=== PATIENT | female | born 1970 | race Caucasian/White ===

== ENCOUNTER 2017-02-28 23:00 | Emergency (ER) | payer BC ==
[~2017-02-28] VITALS: Ht 170.2 cm; Wt 97.6 kg
[~2017-02-28 23:00] MED LIST: AMOX500C5 PO; PREN-96 PO
--- OUTSIDE RECORDS SUMMARY | 2017-02-28 23:04 | XMS REPORT | Continuity of Care Document ---
Author Author [facility] Address Unknown Phone Unavailable Care Team Providers Care Dairy Quality Assurance Officer Name Role Phone DOMINIK FERNÁNDEZ MD PCP [phone] Insurance Providers Payer Name Policy Number Subscriber Name Relationship [facility] [place] [id number] Rj Lepe 01 Advance Directives Directive Response Recorded Date/Time Advanced Directives No 07/22/16 7:13pm Chief Complaint and Reason for Visit Chief Complaint Cardiac Complaint Reason for Visit Right-sided chest pain Problems Active Problems Medical Problem Onset Date Status Acute exacerbation of bronchiectasis 08/08/2012 Acute Right-sided chest pain Unknown Acute Right-sided thoracic back pain Unknown Acute Tachypnea 08/08/2012 Acute UTI (urinary tract infection) Unknown Acute Medications Current Home Medications Medication Dose Units Route Directions Days/Qty Instructions Start Date Amoxicillin 500 Mg 500 Mg ORAL Twice A Day 08/08/12 Vit 18/Iron Cb/Fa/Dss 1 Each 1 Tab ORAL Daily 08/08/12 Social History Query Response Start Date Stop Date Smoking Status Never smoker Hospital Discharge Instructions No hospital discharge instructions. Plan of Care Discharge Date 07/23/16 3:10am Disposition 01 HOME OR SELF-CARE Condition at Discharge Stable Prescriptions See Medication Section Referrals DOMINIK FERNÁNDEZ MD - Additional Instructions/Education Tylenol as needed for pain Follow up with Dr. Lewis Tuesday if discomfort persists Return if symptoms worsen Some of your test results may not be complete prior to your leaving the Emergency Department. The Emergency Department is not authorized to give test results over the phone. Please contact the doctor's office listed in this packet of information for your final results. Follow up with your primary care physician or return to the Emergency Department for worsening or worrisome symptoms. * Emergency Department phone number: [phone], x [phone]* MEDICAL RECORD If you need copies of your X-rays, call [phone]. If you need copies of your medical record, including lab results, a signed authorization for release of records will be required. A telephone call for release of Health Information is not allowed. BILLING Billing can sometimes be confusing and frustrating. To help avoid confusion in the future, please take a moment to acquaint yourself with the billing parties for services. SERVICE BILLING [employer] Emergency Room Services [facility] Physician Services [facility] X-rays [facility] Patients will receive bills for services from the appropriate provider. If you have any questions about your [facility] bill, our staff will be happy to assist you. Please call [phone], and ask for the billing department. THANK YOU for choosing [facility] as your emergency care provider! Care Plan and Goals Follow Doctor's written orders Functional Status No functional status results. Allergies, Adverse Reactions, Alerts No known allergies. Immunizations No immunization records. Vital Signs Acute Vital Signs Vital Response Date/Time Temperature (Fahrenheit) 97.9 07/23/2016 3:20am Pulse 65 bpm 07/23/2016 3:20am Respirations 20 07/23/2016 3:20am Height 5 ft 7 in Weight 212 lb Body Mass Index 33.0 kg/m^2 Results Pending Laboratory Results Test Name Collection Date/Time Procedures Procedure Status Date Provider(s) TRANSVAGINAL US NON-OB Completed 06/24/16 US EXAM PELVIC COMPLETE Completed 06/24/16 ROUTINE VENIPUNCTURE Completed 06/25/16 CHORIONIC GONADOTROPIN TEST Completed 06/25/16 ROUTINE VENIPUNCTURE Completed 06/27/16 CHORIONIC GONADOTROPIN TEST Completed 06/27/16 OB US < 14 WKS SINGLE FETUS Completed 06/30/16 TRANSVAGINAL US OBSTETRIC Completed 06/30/16 ROUTINE VENIPUNCTURE Completed 06/29/16 CHORIONIC GONADOTROPIN TEST Completed 06/29/16 OB US < 14 WKS SINGLE FETUS Completed 07/08/16 TRANSVAGINAL US OBSTETRIC Completed 07/08/16 Encounters Encounter Location Arrival/Admit Date Discharge/Depart Date Attending Provider Departed Emergency Room [facility] 07/22/16 6:49pm 07/23/16 3:10am ARMIN MILLIGAN MD Registered [facility] 07/08/16 12:57pm DASHA LEWIS MD Registered [facility] 06/30/16 3:42pm DASHA LEWIS MD Registered [facility] 06/29/16 7:53am DASHA LEWIS MD Registered Clinic [facility] 06/27/16 11:28am DASHA LEWIS MD Registered [facility] 06/25/16 11:32am DASHA LEWIS MD Registered [facility] 06/24/16 9:49am KYAW MARINELLI Recent Diagnosis
[2017-02-28] MEDS ORDERED: cloNIDine 0.1 MG (CATAPRES) TAB PO ONE (23:25)
[2017-02-28] MEDS ORDERED: HYDROcodone/APAP 5 MG/325 MG (NORCO) TAB PO ONE (23:25)
[2017-03-01] MEDS ORDERED: cloNIDine 0.1 MG (CATAPRES) TAB PO ONE (00:50)
[2017-03-01 02:24] VITALS: BP 135/71
== END 2017-03-01 02:15 | disposition home or self-care (01) ==
LOC: ED 23:01
DX: I10 Essential (primary) hypertension (principal); R51 Headache
CPT/HCPCS: 99282; 99284

== ENCOUNTER → 2017-03-02 | Outpatient (CLI) | payer BC ==
--- NOTE | 2017-03-02 16:16 | Diagnostic Imaging Report ---
INDICATION: Leg pain. FINDINGS: The femoropopliteal deep venous system is patent showing normal color flow and normal compressibility. No deep or superficial thrombus is identified. No mass or fluid collection is documented. IMPRESSION: Normal negative unilateral right lower extremity deep venous Doppler and ultrasound exam. Dictated by: Dictated on workstation # [id number]
== END ==
LOC: RAD 14:09
PROVIDERS: ATTEND Family Medicine
DX: M79.604 Pain in right leg (principal)